=== PATIENT | female | born 1995 | race Caucasian/White ===

== ENCOUNTER → 2016-07-26 | Outpatient (CLI) | payer OTHER, MEDICAID ==
[~2016-07-26] VITALS: Ht 160 cm; Wt 104.5 kg
[~2016-07-26] MED LIST: CLARITIN 1010 MG/TAB PO; DICLEGIS; FLEXERIL 1010 MG/TAB PO; NORCO 325 MG-51 TAB PO; PRENATAL; TYLENOL 500MG500 MG PO
[2016-07-26 14:37] VITALS: BP 132/73; PULSE 91; TEMP 98.3
== END ==
LOC: LDRO 07-15 13:11
DX: O47.03 False labor before 37 completed weeks of gestation, third trimester (principal); O36.8130 Decreased fetal movements, third trimester, not applicable or unspecified; Z3A.34 34 weeks gestation of pregnancy

== ENCOUNTER 2016-08-18 21:26 | Outpatient (CLI) | payer OTHER, MEDICAID ==
[~2016-08-18] VITALS: Ht 160 cm; Wt 111.8 kg
[~2016-08-18 21:26] MED LIST changes: -CLARITIN 1010 MG/TAB PO; -TYLENOL 500MG500 MG PO
[2016-08-18 21:42] VITALS: BP 134/90; PULSE 98; TEMP 98.1
[2016-08-18] MEDS ORDERED: CLARITIN 1010 MG/TAB PO (21:54)
[2016-08-18] MEDS ORDERED: TYLENOL 500MG500 MG PO (21:54)
[2016-08-18 22:00] VITALS: BP 138/83; PULSE 86
== END 2016-08-18 22:35 | disposition home or self-care (01) ==
LOC: LDRO 21:26
DX: O26.893 Other specified pregnancy related conditions, third trimester (principal); M79.89 Other specified soft tissue disorders; M79.672 Pain in left foot; M79.671 Pain in right foot; R03.0 Elevated blood-pressure reading, without diagnosis of hypertension; Z3A.37 37 weeks gestation of pregnancy